=== PATIENT | female | born 1995 | race Caucasian/White ===

== ENCOUNTER 2017-03-08 09:34 | Emergency (ER) | payer BC ==
[~2017-03-08] VITALS: Ht 154.9 cm; Wt 56.1 kg
[~2017-03-08 09:34] MED LIST: NAPROXEN500 MG PO; ZOFRAN ODT4 MG PO
[2017-03-08] MEDS ORDERED: ADDERALL10 MG PO (09:45)
[2017-03-08] MEDS ORDERED: DEXTROAMP-AMPHE30 MG PO (09:46)
[2017-03-08 10:18] LABS: ADD MIUA? YES; BILIRUBIN NEGATIVE; BLOOD LARGE; COLOR YELLOW ((YELLOW)); GLUCOSE (STRIP) NEGATIVE; KETONES NEGATIVE; LEUKOCYTES LARGE; NITRITE NEGATIVE; PROTEIN (STRIP) 30; SPECIFIC GRAVITY 1.017 (1.000-1.030); UROBILINOGEN 0.2 MG/DL (0.2-1.0)
[2017-03-08 10:25] LABS: BACTERIA 3+ /HPF; CALCIUM OXALATE CRYSTALS 3+ /HPF; EPITHELIAL CELLS 3+ /HPF; MUCUS NONE SEEN /LPF; RED BLOOD CELLS TNTC /HPF (0-5); WHITE BLOOD CELLS 40-50 /HPF (0-5)
[2017-03-08 10:31] LABS: EOSINOPHIL (%) 0.7 % (0-5); EOSINOPHIL COUNT 0.1 K/uL (0-0.3); HEMATOCRIT 36.7 % (36.0-46.0); IMMATURE GRANULOCYTE (%) 0.7 % (0.0-0.7); IMMATURE GRANULOCYTE COUNT 0.1 K/uL; INSTRUMENT ABS NEUTROPHIL CT 5.7 K/uL; LYMPHOCYTE COUNT 1.5 K/uL (1.0-2.8); MCH 28.2 PG (29.0-34.0); MCHC 32.4 G/DL (30.0-36.0); MEAN PLAT.VOLUME 10.4 uM^3 (9.5-12.4); MONOCYTE (%) 4.5 % (3-12); MONOCYTE COUNT 0.3 K/uL (0-0.8); NEUTROPHIL (%) 74.3 % (45-76); NEUTROPHIL COUNT 5.7 K/uL (1.8-6.4); PLATELET COUNT 184 K/uL (156-360); RBC DIS.WIDTH-CV 13.1 % (11.8-14.6); RBC DIS.WIDTH-SD 41.4 % (39-53); RED BLOOD COUNT 4.22 M/uL (3.80-5.20); WHITE BLOOD COUNT 7.6 K/uL (4.1-10.2)
[2017-03-08 10:45] LABS: CHLORIDE 107 mEq/L (99-109); POTASSIUM 3.8 mEq/L (3.7-5.4); SODIUM 141 mEq/L (136-147)
[2017-03-08 10:46] LABS: GLUCOSE 84 mg/dL (70-99)
[2017-03-08 10:48] LABS: ANION GAP 10 MEQ/L (2-14)
[2017-03-08 10:50] LABS: GFR ESTIMATE (CALCULATED) > 59 mL/min/
[2017-03-08 10:51] LABS: UREA NITROGEN (BUN) 11 mg/dL (9-23)
[2017-03-08 10:58] LABS: QUANTITATIVE HCG < 4.0 MIU/ML
[2017-03-08] MEDS ORDERED: FLOMAX0.4 MG PO (13:40)
[2017-03-08] MEDS ORDERED: PERCOCET 5/31 TABLET PO (13:40)
[2017-03-08] MEDS ORDERED: ZOFRAN4 MG PO (13:40)
[2017-03-08] MEDS ORDERED: CIPRO500 MG PO ×2 (13:40→13:43)
[2017-03-08 13:51] VITALS: BP 137/96
== END 2017-03-08 14:00 | disposition home or self-care (01) ==
LOC: EME 09:34
PROVIDERS: Emergency Medicine
DX: N20.0 Calculus of kidney (principal); N39.0 Urinary tract infection, site not specified; Z87.442 Personal history of urinary calculi
CPT/HCPCS: 74176; 80048; 81003; 84702; 85025; 99281; 99285; J1885; J2270; J2405; J7030